=== PATIENT | female | born 1980 | race Caucasian/White ===

== ENCOUNTER 2024-01-06 13:36 | Emergency (ER) | payer OTHER ==
[~2024-01-06] VITALS: Ht 157.5 cm; Wt 90.7 kg
[2024-01-06 13:47] VITALS: BP_SYST 143; PULSE 106; RESP 22; TEMP 98.3; O2SAT 98
[2024-01-06] MEDS: KETOROLAC TROMETHAMINE 60 MG/2 ML VIAL IM ONE (14:29)
[2024-01-06 16:08] VITALS: BP_SYST 143; PULSE 106; RESP 22; TEMP 98.3; O2SAT 98
[2024-01-06] MEDS ORDERED: IBUP-1969 PO (16:10)
[2024-01-06] MEDS ORDERED: SOM350 PO (16:10)
== END 2024-01-06 16:20 | disposition home or self-care (01) ==
LOC: SED 13:36
DX: S33.5XXA Sprain of ligaments of lumbar spine, initial encounter (principal); Z88.2 Allergy status to sulfonamides; W01.0XXA Fall on same level from slipping, tripping and stumbling without subsequent striking against object, initial encounter; Y93.89 Activity, other specified; Y92.89 Other specified places as the place of occurrence of the external cause; Y99.8 Other external cause status
CPT/HCPCS: 99283; 72100; 81025; 96372; J1885